=== PATIENT | female | born 1955 | race Caucasian/White ===

== ENCOUNTER 2017-08-11 06:27 | Day surgery (SDC) | payer OTHER ==
[2017-08-10 15:29] VITALS: BMI 32.0
[2017-08-11] MEDS ORDERED: LIDOCAINE HCL 2% (20ML MULTI-DOSE VIAL) NR ONE (07:56)
[2017-08-11] MEDS ORDERED: PROPOFOL 20 ML ONE ×2 (07:56)
[2017-08-11 08:43] VITALS: TEMP 98.4
[2017-08-11 08:56] VITALS: PULSE 58
[2017-08-11 10:36] VITALS: BP 115/49
== END 2017-08-11 10:00 | disposition home or self-care (01) ==
LOC: JASU-ENDO 06:27
PROVIDERS: ATTEND Internal Medicine Gastroenterology
PROC: 0DJD8ZZ Inspection of Lower Intestinal Tract, Via Natural or Artificial Opening Endoscopic (ICD-10-PCS; principal; 2017-08-11 08:00)
DX: Z12.11 Encounter for screening for malignant neoplasm of colon (principal); Z86.010 Personal history of colon polyps; K57.30 Diverticulosis of large intestine without perforation or abscess without bleeding

== ENCOUNTER 2017-12-09 09:46 | Emergency (ER) | payer OTHER ==
[2017-12-09 09:59] VITALS: BP 146/70; PULSE 72; TEMP 98.8; BMI 32.0
--- NOTE | 2017-12-09 10:18 | PDOC ---
History of Present Illness - General Chief Complaint: Pain Stated Complaint: RIGHT HAND PAIN Time Seen by Provider: 12/09/17 09:48 - History of Present Illness Initial Comments: 12/09/17 10:17 62 yo F with h/o HTN, and RA who presents with R hand pain. Patient reports 48 hours of progressive/worsening, diffuse, sharp shooting/spasmodic R hand pain. Pain aggravated with touch and movement. States that she applied topical biofreeze and alcohol to hand, which exacerbated pain. Denies hand trauma. Pain refractory to cyclobenzaprine 10 mg PO x 1 and Tramadol 50 mg PO x 2. States that she receives intraarticular glucocortocioid injections Q 2 months by pain specialist. Was unable to be seen by pain specialist for past 2 days. Denies N/ V, fevers/chills, CP, SOB, weakness, lightheadedness, urinary complaints, abdominal complaints. Past History - Past Medical History Allergies/Adverse Reactions: Allergies Allergy/AdvReac Type Severity Reaction Status Date / Time aspirin Allergy Hives Verified 12/09/17 09:48 Home Medications: Ambulatory Orders Levothyroxine [Synthroid -] 50 mcg PO DAILY 11/16/12 Tramadol HCl 50 mg PO PRN PRN 03/03/13 Amlodipine Besylate [Norvasc -] 2.5 mg PO DAILY 08/22/13 Cholecalciferol (Vitamin D3) [Vitamin D3] 1,000 unit PO DAILY 08/11/17 Cyclobenzaprine HCl [Flexeril 10 mg] 10 mg PO PRN 12/09/17 Anemia: No Asthma: No Cancer: No Cardiac Disorders: No CVA: No COPD: No CHF: No DVT: No Dementia: No Diabetes: No GI Disorders: Yes (STRICTURE OF ESOPHAGUS,HIATAL HERNIA) Disorders: No HTN: Yes Hypercholesterolemia: No Liver Disease: No Seizures: No Thyroid Disease: Yes (HYPOTHYROID DISEASE, ARTHRITIS) - Surgical History Abdominal Surgery: No Appendectomy: No Cardiac Surgery: No Cholecystectomy: No Lung Surgery: No Neurologic Surgery: Yes (SPINAL FUSION) Orthopedic Surgery: Yes (spinal fusion l4,l5,s1) - Suicide/Smoking/Psychosocial Hx Smoking Status: No Smoking History: Former smoker Years of Tobacco Use: 40 Have you smoked in the past 12 months: No Number of Cigarettes Smoked Daily: 1 If you are a former smoker, when did you quit?: 2013 Information on smoking cessation initiated: No 'Breaking Loose' booklet given: 09/21/13 Hx Alcohol Use: Yes (SOCIAL) Drug/Substance Use Hx: No Substance Use Type: Alcohol Hx Substance Use Treatment: No Review of Systems - Review of Systems Comments:: 12/09/17 10:17 GENERAL/CONSTITUTIONAL: No fever or chills. No weakness. HEAD, EYES, EARS, NOSE AND THROAT: No change in vision. No ear pain or discharge. No sore throat.- CARDIOVASCULAR: No chest pain or shortness of breath RESPIRATORY: No cough, wheezing, or hemoptysis. GASTROINTESTINAL: No nausea, vomiting, diarrhea or constipation. GENITOURINARY: No dysuria, frequency, or change in urination. MUSCULOSKELETAL: R hand/wrist pain. No joint or muscle swelling or pain. No neck or back pain. SKIN: No rash NEUROLOGIC: No headache, vertigo, loss of consciousness, or change in strength/ sensation. ENDOCRINE: No increased thirst. No abnormal weight change HEMATOLOGIC/LYMPHATIC: No anemia, easy bleeding, or history of blood clots. ALLERGIC/IMMUNOLOGIC: No hives or skin allergy. *Physical Exam - Vital Signs Last Vital Signs Temp Pulse Resp BP Pulse Ox 98.8 F 72 18 146/70 100 12/09/17 09:47 12/09/17 09:47 12/09/17 09:47 12/09/17 09:47 12/09/17 09:47 - Physical Exam Comments: 12/09/17 10:17 GENERAL: Awake, alert, and fully oriented, in no acute distress HEAD: No signs of trauma, normocephalic, atraumatic EYES: PERRLA, EOMI, sclera anicteric, conjunctiva clear ENT: Hearing grossly normal, nares patent, oropharynx clear without exudates. Moist mucosa NECK: Normal ROM, no JVD, or masses LUNGS: No distress, speaks full sentences, clear to auscultation bilaterally HEART: Regular rate and rhythm, normal S1 and S2, no murmurs, rubs or gallops, peripheral pulses normal and equal bilaterally. EXTREMITIES : Normal inspection, Normal range of motion, no edema. No clubbing or cyanosis. R hand: + right anterior erythema at base of 1st carpal. + diffuse ttp at ant surface of right hand. Pain with active and passive ROM. Absent gross bony deformity. SKIN: Warm, Dry, normal turgor, no rashes or lesions noted. Medical Decision Making - Medical Decision Making 12/09/17 11:00 62 yo F with h/o HTN, and RA who presents with 48 hours of progressive/worsening , diffuse, sharp shooting/spasmodic R hand pain. Pain aggravated with touch and movement. Denies hand trauma. Pain refractory to cyclobenzaprine 10 mg PO x 1 and Tramadol 50 mg PO x 2. Receives intraarticular glucocortocioid injections Q 2 months by pain specialist. Denies N/V, fevers/chills, CP, SOB, weakness, lightheadedness, urinary complaints, abdominal complaints. Physical exam reveals + right anterior erythema at base of 1st carpal. + diffuse ttp at ant surface of right hand. Pain with active and passive ROM. Absent gross bony deformity. Physical exam and history consistent with arthritic type pain. Patient with no recent or past h/o hand trauma. There is low suspicion of scaphoid fracture, traumatic injury, acute hand/wrist pathology, or widespread infectious etiology in absence of systemic complaints. ED Course: Patient refuses IV Acetaminophen. Requests IM Toradol. Patient denies h/o adverse reaction or EROS d/t Ketoralac in the past. 12/09/17 11:45 Right hand wrist splint applied. Patient advised to follow up with pain specialist for continued management. Stable for discharge with return precautions. *DC/Admit/Observation/Transfer Diagnosis at time of Disposition: Hand pain, right - Discharge Dispostion Disposition: HOME Condition at time of disposition: Stable Admit: No - Referrals - Patient Instructions Printed Discharge Instructions: DI for Hand Pain Additional Instructions: Please return to the emergency department with any new or worsening symptoms or concerns. Please follow up with pain specialist within the next 1 week. - Post Discharge Activity - Attestations Physician Attestion: 12/09/17 11:44 I attest to the information provided in this note.
[2017-12-09] MEDS ORDERED: ACETAMINOPHEN 1000 MG/100 ML VIAL (NON FORMULARY) IVPB ONE (10:55)
[2017-12-09] MEDS ORDERED: KETOROLAC TROMETHAMINE 60 MG/2 ML VIAL IM ONE (10:59)
[2017-12-09] MEDS ORDERED: KETOROLAC TROMETHAMINE 60 MG/2 ML VIAL ONE (11:01)
== END 2017-12-09 11:53 | disposition home or self-care (01) ==
LOC: FER 09:46
PROC: 3E0233Z Introduction of Anti-inflammatory into Muscle, Percutaneous Approach (ICD-10-PCS; principal; 2017-12-09)
DX: M79.641 Pain in right hand (principal); I10 Essential (primary) hypertension; M06.9 Rheumatoid arthritis, unspecified
CPT/HCPCS: 99282-25

== ENCOUNTER 2018-11-28 13:48 | Emergency (ER) | payer OTHER ==
--- NOTE | 2018-11-28 14:15 | PDOC ---
Rapid Medical Evaluation Time Seen by Provider: 11/28/18 14:13 Medical Evaluation: Allergies Allergy/AdvReac Type Severity Reaction Status Date / Time aspirin Allergy Hives Verified 12/09/17 09:48 11/28/18 14:13 I have done a brief in-person assessment of this patient. The patient presents with a chief complaint of bleeding varicose vein. Patient reports cutting herself while shaving today causing bleeding of a varicose vein. Denies pain Pertinent physical exam findings NAD even and unlabored breathing left lower leg with blood on leg and pressure dressing in place ( dressing not soaked) I have ordered the following: none The patient will proceed to the Ed for further evaluation. Dx: bleeding varicose vein
[2018-11-28 14:16] VITALS: BP 129/65; PULSE 71; TEMP 98.6; BMI 31.1
[2018-11-28] MEDS ORDERED: SILVER NITRATE 75% APPLIC STCK 1 PKT EACH ONE ×2 (14:59→15:00)
--- NOTE | 2018-11-28 15:27 | PDOC ---
History of Present Illness - General Chief Complaint: Laceration Stated Complaint: LACERATION Time Seen by Provider: 11/28/18 14:13 History Source: Patient Exam Limitations: Clinical Condition - History of Present Illness Initial Comments: 11/28/18 15:18 Patient with history of left hip replacement and varicose vein to anterior lower leg present with bleeding from varicose pain after trying to shave legs this morning. Patient reported bruising blood from the varicose vein after she attempted to shave. Patient reports she went to a neighbor who put pressure compresses to bleeding area which stopped the bleeding. Patient reported history of Eliquis anticoagulation which was DC'd 4 weeks ago. Patient denies any other symptoms.she reported last tetanus vaccine 5 years ago. Patient on Augmentin antibiotics given by PCP for stomach problems causing discharge from rectum. Timing/Duration: 1-3 hours Past History - Past Medical History Allergies/Adverse Reactions: Allergies Allergy/AdvReac Type Severity Reaction Status Date / Time aspirin Allergy Hives Verified 12/09/17 09:48 Home Medications: Ambulatory Orders Levothyroxine [Synthroid -] 50 mcg PO DAILY 11/16/12 Tramadol HCl 50 mg PO PRN PRN 03/03/13 Amlodipine Besylate [Norvasc -] 2.5 mg PO DAILY 08/22/13 Cholecalciferol (Vitamin D3) [Vitamin D3] 1,000 unit PO DAILY 08/11/17 Cyclobenzaprine HCl [Flexeril 10 mg] 10 mg PO PRN 12/09/17 Anemia: No Asthma: No Cancer: No Cardiac Disorders: No CVA: No COPD: No CHF: No DVT: No Dementia: No Diabetes: No GI Disorders: Yes (STRICTURE OF ESOPHAGUS,HIATAL HERNIA) Disorders: No HTN: Yes Hypercholesterolemia: No Liver Disease: No Seizures: No Thyroid Disease: Yes (HYPOTHYROID DISEASE, ARTHRITIS) - Surgical History Abdominal Surgery: No Appendectomy: No Cardiac Surgery: No Cholecystectomy: No Lung Surgery: No Neurologic Surgery: Yes (SPINAL FUSION) Orthopedic Surgery: Yes (spinal fusion l4,l5,s1) - Suicide/Smoking/Psychosocial Hx Smoking Status: No Smoking History: Never smoked Years of Tobacco Use: 40 Have you smoked in the past 12 months: No Number of Cigarettes Smoked Daily: 1 If you are a former smoker, when did you quit?: 2012 Information on smoking cessation initiated: No 'Breaking Loose' booklet given: 09/21/13 Hx Alcohol Use: No Drug/Substance Use Hx: No Substance Use Type: Alcohol Hx Substance Use Treatment: No Review of Systems - Review of Systems Able to Perform ROS?: Yes Is the patient limited Japanese proficient: No Constitutional: No: Chills, Fever, Weakness HEENTM: No: Symptoms Reported Respiratory: No: Symptoms reported Cardiac (ROS): No: Symptoms Reported ABD/GI: No: Nausea, Vomiting Musculoskeletal: Yes: Other (bleeding from varicose vein) Integumentary: Yes: Other (bleeding from varicose vein from shaving) Neurological: No: Headache, Paresthesia, Weakness All Other Systems: Reviewed and Negative *Physical Exam - Vital Signs Last Vital Signs Temp Pulse Resp BP Pulse Ox 98.6 F 71 20 129/65 99 11/28/18 14:12 11/28/18 14:12 11/28/18 14:12 11/28/18 14:12 11/28/18 14:12 - Physical Exam Comments: 11/28/18 15:22 GENERAL: Well developed, well nourished. Awake and alert. No acute distress. NECK: Full ROM. CARDIOVASCULAR: Regular rate and rhythm. No murmurs, rubs, or gallops. Distal pulses are 2+ and symmetric. PULMONARY: No evidence of respiratory distress. Lungs clear to auscultation bilaterally. No wheezing, rales or rhonchi. ABDOMINAL: Soft. Non-tender. Non-distended. No rebound or guarding. No organomegaly. Normoactive bowel sounds. MUSCULOSKELETAL Normal range of motion at all joints. No bony deformities or tenderness. SKIN: dried blood to B/L feet and left lower leg around laceration area. multiple varicoses to rowley of left LE . pumping bleeding from varicose vein when pressure dressing removed. bleeding stopped with pressure dressing and silvert nitrate sticks. NEUROLOGICAL: Alert, awake, appropriate. . PSYCHIATRIC: Cooperative. Good eye contact. Appropriate mood and affect. General Appearance: Yes: Nourished, Appropriately Dressed. No: Apparent Distress Moderate Sedation - Procedure Monitoring Vital Signs: Procedure Monitoring Vital Signs Temperature 98.6 F 11/28/18 14:12 Pulse Rate 71 11/28/18 14:12 Respiratory Rate 20 11/28/18 14:12 Blood Pressure 129/65 11/28/18 14:12 O2 Sat by Pulse Oximetry (%) 99 11/28/18 14:12 Medical Decision Making - Medical Decision Making 11/28/18 15:27 Exam of left LE shows dried blood to B/L feet and left lower leg around laceration area. multiple varicoses to rowley of left LE . pumping bleeding from varicose vein when pressure dressing removed. bleeding stopped with pressure dressing and silver nitrate sticks. Bleeding well controlled with silver nitrate. Dry blood from skin cleaned with hydrogen peroxide. Bacitracin applied to wound and wound covered with adhesive bandage. Bleeding precautions given to patient. Patient to follow-up with PCP in 2 days for reassessment. *DC/Admit/Observation/Transfer Diagnosis at time of Disposition: Bleeding from varicose veins of left lower extremity Varicose vein of leg Qualifiers: Varicose vein complication: unspecified Laterality: left Qualified Code(s): I83.92 - Asymptomatic varicose veins of left lower extremity - Discharge Dispostion Disposition: HOME Condition at time of disposition: Stable Decision to Admit order: No - Referrals Referrals: Polo Musa MD [Primary Care Provider] - Deep Márquez MD [Staff Physician] - - Patient Instructions Printed Discharge Instructions: Varicose Veins Additional Instructions: Apply provided Neosporin to wound twice a day until healed. Follow with primary care for wound check in the next 2-3 days as needed. Come back to emergency room if bleeding starts again.Follow-up Dr. Márquez for varicose veins. - Post Discharge Activity
[2018-11-28] MEDS ORDERED: SILVER NITRATE 75% APPLIC STCK 1 PKT EACH TP ONE (15:45)
== END 2018-11-28 16:14 | disposition home or self-care (01) ==
LOC: JER 13:48 → JERFT 13:48
DX: I83.92 Asymptomatic varicose veins of left lower extremity (principal); R58 Hemorrhage, not elsewhere classified; I10 Essential (primary) hypertension; E03.9 Hypothyroidism, unspecified; Z87.891 Personal history of nicotine dependence
CPT/HCPCS: 99281-25

== ENCOUNTER 2022-12-29 04:50 | Day surgery (SDC) | payer OTHER ==
[2022-12-28 10:45] VITALS: BMI 32.5
[2022-12-29 12:08] VITALS: TEMP 98.1
[2022-12-29 14:38] VITALS: BP 119/98; PULSE 73; RESP 14
== END 2022-12-29 14:39 | disposition home or self-care (01) ==
LOC: JASU-ENDO 04:50
PROVIDERS: ATTEND Internal Medicine Gastroenterology
PROC: 0DB78ZX Excision of Stomach, Pylorus, Via Natural or Artificial Opening Endoscopic, Diagnostic (ICD-10-PCS; 2022-12-29)
PROC: 0DB68ZX Excision of Stomach, Via Natural or Artificial Opening Endoscopic, Diagnostic (ICD-10-PCS; 2022-12-29)
PROC: 0D758ZZ Dilation of Esophagus, Via Natural or Artificial Opening Endoscopic (ICD-10-PCS; 2022-12-29)
PROC: 0DB58ZX Excision of Esophagus, Via Natural or Artificial Opening Endoscopic, Diagnostic (ICD-10-PCS; principal; 2022-12-29 12:00)
DX: K22.2 Esophageal obstruction (principal); K21.00 Gastro-esophageal reflux disease with esophagitis, without bleeding; K44.9 Diaphragmatic hernia without obstruction or gangrene; K31.7 Polyp of stomach and duodenum; K29.50 Unspecified chronic gastritis without bleeding
CPT/HCPCS: 88305-TC; 88342-TC

== ENCOUNTER 2023-01-12 04:40 | Day surgery (SDC) | payer OTHER ==
[2023-01-07 16:12] VITALS: BMI 32.9
[2023-01-12 10:00] VITALS: TEMP 99.1
[2023-01-12 11:38] VITALS: BP 131/62; PULSE 54; RESP 19
== END 2023-01-12 11:00 | disposition home or self-care (01) ==
LOC: JASU-ENDO 04:40
PROVIDERS: ATTEND Internal Medicine Gastroenterology
PROC: 0DJD8ZZ Inspection of Lower Intestinal Tract, Via Natural or Artificial Opening Endoscopic (ICD-10-PCS; principal; 2023-01-12 09:15)
DX: Z12.11 Encounter for screening for malignant neoplasm of colon (principal); K64.8 Other hemorrhoids; K57.30 Diverticulosis of large intestine without perforation or abscess without bleeding

== ENCOUNTER 2023-02-14 12:49 | Emergency (ER) | payer OTHER ==
[2023-02-14 13:00] VITALS: BP 152/84; PULSE 80; RESP 18; TEMP 98.2; BMI 32.9
[2023-02-14] MEDS ORDERED: DIPHTH,PERTUSS(ACELL),TET 0.5 ML DISP.SYRIN IM ONE ×2 (13:40→13:46)
== END 2023-02-14 14:05 | disposition home or self-care (01) ==
LOC: JERFT 12:49
PROC: 0HQFXZZ Repair Right Hand Skin, External Approach (ICD-10-PCS; principal; 2023-02-14)
PROC: 3E0234Z Introduction of Serum, Toxoid and Vaccine into Muscle, Percutaneous Approach (ICD-10-PCS; 2023-02-14)
DX: S61.212A Laceration without foreign body of right middle finger without damage to nail, initial encounter (principal); W26.0XXA Contact with knife, initial encounter; Y93.E5 Activity, floor mopping and cleaning; Y92.008 Other place in unspecified non-institutional (private) residence as the place of occurrence of the external cause
CPT/HCPCS: 12001-25; 90471; 90715; 96371; 99282-25

== ENCOUNTER 2023-06-02 08:58 | Emergency (ER) | payer OTHER ==
[2023-06-02 09:10] VITALS: BP 139/80; PULSE 68; RESP 18; TEMP 98.2; BMI 32.9
[2023-06-02 10:26] LABS: HEMATOCRIT 37.9 % (32.4-45.2); HEMOGLOBIN 12.6 G/dL (10.7-15.3); MCH 31.9 pg (25.7-33.7); MCHC 33.3 g/dl (32.0-36.0); MEAN CELL VOLUME 95.7 fl (80-96); MEAN PLT VOLUME 7.6 fl (7.5-11.1); PLATELET COUNT 290.2 10^3/uL (134-434); RBC 3.96 10^6/uL (3.60-5.2); RDW 14.1 % (11.6-15.6); WHITE BLOOD COUNT 8.5 10^3/uL (4.0-10.8)
[2023-06-02 10:32] LABS: PLATELET ESTIMATE ADEQUATE
[2023-06-02 10:36] LABS: ALBUMIN 3.5 g/dl (3.4-5.0); BILIRUBIN,TOTAL 0.4 mg/dl (0.2-1); BLOOD UREA NITROGEN 14.9 mg/dl (7-18); CALCIUM 8.8 mg/dl (8.5-10.1); CREATININE 0.7 mg/dl (0.6-1.3); POTASSIUM 3.7 mmol/L (3.5-5.1); SGOT/AST 12.2 U/L (15-37); SGPT/ALT 7.9 U/L (7-52); TOT PROT 5.9 g/dl (6.4-8.2)
== END 2023-06-02 10:53 | disposition home or self-care (01) ==
LOC: FER 08:58
DX: R60.9 Edema, unspecified (principal)
CPT/HCPCS: 36415; 80053; 85027; 99283-25

== ENCOUNTER 2024-02-19 09:58 | Emergency (ER) | payer OTHER ==
[2024-02-19 10:07] VITALS: BP 135/79; PULSE 65; RESP 18; TEMP 98; BMI 30.7
[2024-02-19] MEDS ORDERED: ACETAMINOPHEN INJECTION 100 ML IVPB ONE (11:19)
[2024-02-19] MEDS: SODIUM CHLORIDE 0.9% 500 ML INFUS.BAG IV ONE (11:26)
[2024-02-19] MEDS: ACETAMINOPHEN 1000 MG/100 ML BAG IVPB ONE (11:26)
[2024-02-19 11:31] LABS: BASO % 0.5 % (0-2.0); HEMATOCRIT 39.9 % (32.4-45.2); HEMOGLOBIN 13.2 GM/dL (10.7-15.3); LYMPH % 23.1 % (8-40); MCH 31.4 pg (25.7-33.7); MCHC 33.1 g/dl (32.0-36.0); MEAN PLT VOLUME 7.2 fl (7.5-11.1); MONO % 9.9 % (3.8-10.2); NEUT % 64.5 % (42.8-82.8); PLATELET COUNT 262 10^3/uL (134-434); RDW 13.9 % (11.6-15.6); WHITE BLOOD COUNT 6.5 K/mm3 (4.0-10.0)
[2024-02-19 11:40] LABS: INR 1.03 (0.83-1.09)
[2024-02-19 11:42] LABS: ACTIVATED PTT 33.1 SECONDS (25.2-36.5)
[2024-02-19 11:55] LABS: POTASSIUM 4.1 mmol/L (3.5-5.1)
[2024-02-19 11:59] LABS: ALBUMIN 3.2 g/dl (3.4-5.0); BLOOD UREA NITROGEN 11.6 mg/dL (7-18)
[2024-02-19 12:02] LABS: CREATININE 0.7 mg/dL (0.55-1.3)
[2024-02-19 12:03] LABS: BILIRUBIN,TOTAL 0.9 mg/dL (0.2-1); TOT PROT 6.7 g/dl (6.4-8.2)
[2024-02-19 13:23] LABS: URINE APPEARANCE CLEAR; URINE BILIRUBIN NEGATIVE (NEGATIVE); URINE COLOR YELLOW; URINE GLUCOSE (UA) NEGATIVE (NEGATIVE); URINE KETONE NEGATIVE (NEGATIVE)
[2024-02-19 13:24] LABS: PH,URINE 5.5 (5.0-8.0); URINE LEUK ESTERASE NEGATIVE (NEGATIVE); URINE NITRITE NEGATIVE (NEGATIVE); URINE PROTEIN N (NEGATIVE); URINE UROBILINOGEN 0.2 mg/dL (0.2-1.0)
== END 2024-02-19 14:04 | disposition home or self-care (01) ==
LOC: JER 09:58
DX: R10.32 Left lower quadrant pain (principal)
CPT/HCPCS: 36415; 74177-TC; 80053; 81003; 83605; 83690; 84484; 85025; 85610; 85730; 86850; 86900; 86901; 87077; 87086; 93005; 93010; 99285-25

== ENCOUNTER 2024-08-24 14:24 | Emergency (ER) | payer OTHER ==
[2024-08-24 14:35] VITALS: BP 147/79; PULSE 76; RESP 18; TEMP 98.3; BMI 29.4
[2024-08-24] MEDS ORDERED: KETOROLAC TROMETHAMINE 30 MG/1 ML VIAL ONE (15:49)
[2024-08-24] MEDS: KETOROLAC TROMETHAMINE 30 MG/1 ML VIAL IM ONE (15:56)
[2024-08-24] MEDS ORDERED: oxyCODONE HCL 5 MG TABLET PO ONE (17:01)
== END 2024-08-24 17:25 | disposition home or self-care (01) ==
LOC: JER 14:24
PROC: 3E0233Z Introduction of Anti-inflammatory into Muscle, Percutaneous Approach (ICD-10-PCS; principal; 2024-08-24)
DX: M54.9 Dorsalgia, unspecified (principal); R10.30 Lower abdominal pain, unspecified
CPT/HCPCS: 96372; 99284-25